=== PATIENT | male | born 1960 | race Caucasian/White ===

== ENCOUNTER 2021-01-02 11:57 | Emergency (ER) | payer OTHER ==
[~2021-01-02] VITALS: Ht 185.4 cm; Wt 72.6 kg
[2021-01-02 12:00] VITALS: BP 126/90
== END 2021-01-02 13:18 | disposition home or self-care (01) ==
LOC: ED 13:00
DX: S63.634A Sprain of interphalangeal joint of right ring finger, initial encounter (principal); X50.1XXA Overexertion from prolonged static or awkward postures, initial encounter; Y93.89 Activity, other specified; Y92.814 Boat as the place of occurrence of the external cause; Y99.8 Other external cause status
CPT/HCPCS: 99283